=== PATIENT | male | born 1985 | race Caucasian/White ===

== ENCOUNTER 2016-09-19 18:07 | Emergency (ER) | payer OTHER ==
[2016-09-19] MEDS ORDERED: IOPAMIDOL-300 100 ML VIAL IVP ONE (20:26)
== END 2016-09-19 21:06 | disposition home or self-care (01) ==
DX: R07.9 Chest pain, unspecified (principal); Z82.49 Family history of ischemic heart disease and other diseases of the circulatory system; K21.9 Gastro-esophageal reflux disease without esophagitis; I10 Essential (primary) hypertension
CPT/HCPCS: 36415; 71020; 71275; 80053; 83690; 84484; 85025; 85379; 93005; 93010; 99283; 99284; Q9967

== ENCOUNTER 2017-11-24 21:04 | Emergency (ER) | payer OTHER ==
[2017-11-24 21:11] VITALS: BP 143/88
[2017-11-24] MEDS ORDERED: predniSONE 20 MG TABLET PO STA (21:41)
--- NOTE | 2017-11-24 21:42 | ED Physician Documentation ---
History of Present Illness - Stated complaint Stated Complaint: SORE THROAT - Chief complaint Chief Complaint: Heent - History obtained from History obtained from: Patient - History of Present Illness Timing: Other (1 week of sore throat associated with dry cough and some postnasal drip[place] with viral pharyngitis , he says a strep test was done and negative, it was unclear if his throat was cultured. He has chills when the Tylenol or Motrin wears off but no measured fevers.) Review of Systems Constitutional: reports: Chills. denies: Fever Nose: reports: Rhinorrhea / runny nose Throat: reports: Sore throat Respiratory: reports: Cough. denies: Dyspnea GI: denies: Abdominal Pain, Nausea, Vomiting PD PAST MEDICAL HISTORY - Past Medical History Past Medical History: Yes Cardiovascular: Hypertension GI: GERD - Past Surgical History Past Surgical History: Yes HEENT: Tonsil/Adenoidectomy - Present Medications Home Medications: Ambulatory Orders Medication Instructions Recorded Confirmed predniSONE [Deltasone] 60 mg PO DAILY 5 Days tablet 11/24/17 - Allergies Allergies/Adverse Reactions: Allergies Allergy/AdvReac Type Severity Reaction Status Date / Time sulfamethoxazole Allergy Rash Verified 11/24/17 21:12 [From Bactrim] trimethoprim [From Bactrim] Allergy Rash Verified 11/24/17 21:12 - Social History Does the pt smoke?: No Smoking Status: Never smoker Does the pt drink ETOH?: Yes Does the pt have substance abuse?: No - Immunizations Immunizations are current?: Yes - POLST Patient has POLST: No PD ED PE NORMAL - Vitals Vital signs reviewed: Yes - General General: Alert and oriented X 3, No acute distress - HEENT HEENT: PERRL, EOMI, Other (Red tonsillar pillars) - Neck Neck: Supple, no meningeal sign, No bony TTP, No adenopathy - Cardiac Cardiac: RRR, No murmur - Respiratory Respiratory: No respiratory distress, Clear bilaterally - Abdomen Abdomen: Non tender - Neuro Neuro: Alert and oriented X 3, Normal speech - Psych Psych: Normal mood, Normal affect Results - Vitals Vitals: Vital Signs - 24 hr 11/24/17 21:05 Temperature 36.8 C Heart Rate 60 Respiratory 16 Rate Blood Pressure 143/88 H O2 Saturation 100 Oxygen O2 Source Room air - Labs Labs: Laboratory Tests 11/24/17 21:09 Group A Strep Rapid Negative Departure - Departure Disposition: Home, Self Care Clinical Impression: Viral pharyngitis Condition: Good Record reviewed to determine appropriate education?: Yes Instructions: ED Pharyngitis Viral Report Pending Prescriptions: predniSONE [Deltasone] 60 mg PO DAILY 5 Days tablet Comments: If your throat culture becomes positive for a bacterial pathogen, we will call in approximately 2-3 day's time. Return if worse or if new symptoms develop. Your blood pressure was elevated today on check into the emergency department. This does not mean that you have hypertension, it is a common phenomenon to come to the emergency department and have elevated blood pressure. I recommend that you see your primary care physician within the week to have it rechecked when you are feeling better.
== END 2017-11-24 21:45 | disposition home or self-care (01) ==
LOC: ED 21:04
DX: J02.8 Acute pharyngitis due to other specified organisms (principal); B97.89 Other viral agents as the cause of diseases classified elsewhere; I10 Essential (primary) hypertension
CPT/HCPCS: 87070; 87077; 87430; 99283; J7512

== ENCOUNTER 2018-03-22 19:37 | Emergency (ER) | payer OTHER ==
[2018-03-22] MEDS ORDERED: predniSONE 20 MG TABLET PO STA (19:57)
--- NOTE | 2018-03-22 19:59 | ED Physician Documentation ---
PD HPI [facility]AL NEURO - Stated complaint Stated Complaint: Vertigo - Chief complaint Chief Complaint: Neuro - History obtained from History obtained from: Patient - History of Present Illness Timing - onset: Other (Been having ongoing fibular symptoms and vertigo since early February, it started with a feeling like he was falling forward and then persistent spinning of the room. He has been seen multiple times in multiple places and had cranial imaging that was negative and followed up with ENT and diagnosed with vestibular neuronitis. He started PT for that and has VNG testing scheduled for next month. In the meantime he was miserable the day, took a meclizine but in the past when he had strep throat it helped his vertigo and he wonders if a longer course of prednisone might be in order.) Review of Systems Constitutional: denies: Fever, Chills Ears: reports: Ear pain Nose: reports: Rhinorrhea / runny nose Cardiac: denies: Chest pain / pressure, Palpitations Respiratory: denies: Dyspnea, Cough PD PAST MEDICAL HISTORY - Past Medical History Cardiovascular: Hypertension GI: GERD - Past Surgical History Past Surgical History: Yes HEENT: Tonsil/Adenoidectomy - Present Medications Home Medications: Ambulatory Orders Medication Instructions Recorded Confirmed Cetirizine HCl/Pseudoephedrine 03/22/18 [Zyrtec-D Tablet] Fluticasone [Flonase] 03/22/18 Ibuprofen [Motrin] 03/22/18 predniSONE [Deltasone] 20 mg PO [id number] #21 tab 03/22/18 - Allergies Allergies/Adverse Reactions: Allergies Allergy/AdvReac Type Severity Reaction Status Date / Time sulfamethoxazole Allergy Rash Verified 11/24/17 21:12 [From Bactrim] trimethoprim [From Bactrim] Allergy Rash Verified 03/22/18 19:43 - Social History Does the pt smoke?: No Smoking Status: Never smoker Does the pt drink ETOH?: Yes Does the pt have substance abuse?: No - Immunizations Immunizations are current?: Yes - POLST Patient has POLST: No PD ED PE NORMAL - Vitals Vital signs reviewed: Yes - General General: Alert and oriented X 3, No acute distress - HEENT HEENT: PERRL, EOMI, Other (There is no nystagmus, he has significant sclerosis of both eardrums.) - Neck Neck: Supple, no meningeal sign, No bony TTP - Neuro Neuro: Alert and oriented X 3, Normal speech Eye Opening: Spontaneous Motor: Obeys Commands Verbal: Oriented GCS Score: 15 - Psych Psych: Normal mood, Normal affect NIHSS - Time Time: 19:50 - Level of Consciousness Level of consciousness: (0) Alert, Keenly responsive LOC Questions: (0) Answers both Q's correct LOC Commands: (0) Performs both correctly - Gaze Best Gaze: (0) Normal - Visual Visual: (0) No loss - Facial Palsy Facial Palsy: (0) Normal, symmetrical movement - Motor Arms (both separate) Motor Arm (right): (0) No drift Motor Arm (left): (0) No drift - Motor Legs (both separate) Motor Leg (right): (0) No drift Motor Leg (left): (0) No drift - Limb Ataxia Limb Ataxia: (0) Absent - Sensory Sensory: (0) Normal - Best Language Best Language: (0) No aphasia - Dysarthria Dysarthria: (0) Normal - Extinction and Inattention (formally neg Extinction and inattention: (0) No abnormality - Total Score/Results Total Score/Result: 0 Results - Vitals Vitals: Vital Signs - 24 hr 03/22/18 19:40 Temperature 36.7 C Heart Rate 77 Respiratory 20 Rate Blood Pressure 158/103 H O2 Saturation 100 Oxygen O2 Source Room air PD MEDICAL DECISION MAKING - Sepsis Event Vital Signs: Vital Signs - 24 hr 03/22/18 19:40 Temperature 36.7 C Heart Rate 77 Respiratory 20 Rate Blood Pressure 158/103 H O2 Saturation 100 Oxygen O2 Source Room air Departure - Departure Disposition: 01 Home, Self Care Clinical Impression: Vertigo Condition: Good Record reviewed to determine appropriate education?: Yes Instructions: ED Vertigo Unspecified Prescriptions: predniSONE [Deltasone] 20 mg PO [id number] #[id number] tab Comments: Call your doctor to arrange a follow-up appointment, make the next available appointment. In the interim, return anytime if worse or if new symptoms develop. Your blood pressure was elevated today on check into the emergency department. This does not mean that you have hypertension, it is a common phenomenon to come to the emergency department and have elevated blood pressure. I recommend that you see your primary care physician within the week to have it rechecked when you are feeling better.
[2018-03-22 20:08] VITALS: BP 150/100
== END 2018-03-22 20:07 | disposition home or self-care (01) ==
LOC: ED 19:37
DX: R42 Dizziness and giddiness (principal); I10 Essential (primary) hypertension
CPT/HCPCS: 99283; J7512